=== PATIENT | male | born 1950 | race Caucasian/White ===

== ENCOUNTER → 2018-12-24 16:10 | Outpatient (CLI) | payer MEDICARE, SELFPAY ==
[2018-12-24 17:05] LABS: Anion Gap 8 (5-15); BUN 29 mg/dL (7-18); Calcium,Total 8.6 mg/dL (8.5-10.1); Chloride 110 mmol/L (98-107); Creatinine, Serum 1.16 mg/dL (0.70-1.30); EST Glomerular Filtration Rate 67 mL/min (>60); Est Glom Filt Rate - Afr Amer 81 mL/min (>60); Glucose 124 mg/dL (74-106); Potassium 4.1 mmol/L (3.5-5.1); Sodium Level 143 mmol/L (136-145)
== END ==
PROVIDERS: PCP Family Medicine; Referring Provider Family Medicine; Visit Provider Family Medicine
DX: L30.9 Dermatitis, unspecified (principal)
CPT/HCPCS: 80048

== ENCOUNTER → 2018-12-26 10:03 | Outpatient (CLI) | payer MEDICARE, SELFPAY ==
[2018-12-26 10:40] LABS: Hemoglobin A1c 5.9 % (4.2-6.3)
== END ==
PROVIDERS: PCP Family Medicine; Referring Provider Family Medicine; Visit Provider Family Medicine
DX: R73.9 Hyperglycemia, unspecified (principal)
CPT/HCPCS: 83036

== ENCOUNTER → 2024-11-24 | Outpatient (CLI) | payer MEDICARE, SELFPAY ==
--- NOTE | 2024-11-24 08:21 | CT_ITS ---
PROCEDURE: EXTREMITY LOWER WITHOUT CONTRA 11/24/2024 REASON FOR EXAM: TEMPLATING FOR LEFT [employer] protocol. TECHNIQUE: Axial CT images of the left lower extremity obtained without intravenous contrast. Coronal and Sagittal reconstruction series were provided. One or more dose reduction techniques were used (e.g., Automated exposure control, adjustment of the mA and/or kV according to patient size, use of iterative reconstruction technique RADIATION DOSE SUMMARY: CTDlvol: 18.5 mGy DLP: 1225.79 mGycm COMPARISON: None FINDINGS: Bones: No bony abnormality is seen. Joints: Imaging of the left hip joint was obtained. There is good alignment. Mild degree of joint space narrowing. Mild degree of degenerative changes of the left sacroiliac joint. Imaging of the left knee was obtained. There is a marked degree of joint space narrowing involving the medial compartment of the knee joint with evidence of subchondral cystic changes in the medial femoral condyle and medial tibial plateau. Mild degree of degenerative changes of the patellofemoral joint. Imaging of the ankle joint was obtained. There is evidence of calcaneal spurs. No other abnormality is seen. Soft Tissues: Small knee joint effusion. CT/Extremity Lower without Contra IMPRESSION: Osteoarthritis of the left knee joint as described. Small knee joint effusion. Calcaneal spurs. Reading Location: [id number]
== END | disposition home or self-care (01) ==
LOC: CT 08:01
PROVIDERS: PCP Family Medicine; Referring Provider Orthopaedic Surgery; Visit Provider Orthopaedic Surgery
DX: M17.12 Unilateral primary osteoarthritis, left knee (principal)
CPT/HCPCS: 73700

== ENCOUNTER 2024-12-02 05:08 | Day surgery (SDC) | payer MEDICARE, SELFPAY ==
--- NOTE | 2024-11-24 07:59 | EKG12_ITS ---
Test Reason : PRE OP Blood Pressure : */* mmHG Vent. Rate : 88 BPM Atrial Rate : 88 BPM P-R Int : 192 ms QRS Dur : 82 ms QT Int : 350 ms P-R-T Axes : 48 -6 55 degrees QTcB Int : 423 ms Normal sinus rhythm Moderate voltage criteria for LVH, may be normal variant ST abnormality, possible digitalis effect Abnormal ECG Confirmed by ANDREY MARTIN, BENJAMÍN ([id number]), editor sound OLI RUBALCAVA ([id number]) on 11/24/2024 11:42:14 AM Referred By: Kiran Quinones Confirmed By: BENJAMÍN BALDERAS MD
[2024-11-24 08:54] LABS: Absolute Lymphocyte Count 1.53 X10^3/uL (0.83-4.51); Absolute Neutrophil Count 3.6 X10^3/uL (2.0-7.7); Basophil# 0.06 X10^3/uL; Eosinophil# 0.15 X10^3/uL; Eosinophils% 2.5 % (0-5); Hematocrit 44.4 % (40-54); Hemoglobin 15.1 g/dL (13.0-16.5); Lymphocyte # 1.53 X10^3/ul (0.83-4.51); Lymphocyte % 25.7 % (19-41); Mean Corpuscular Hgb 32.4 pg (27.0-32.0); Mean Corpuscular Volume 95.3 fL (80-94); Mean Platelet Vol. 10.4 fl (6.2-12.0); Monocyte# 0.64 X10^3/uL; Monocyte% 10.7 % (0-10); NRBC Flagged by Analyzer 0 % (0-5); Neutrophil # 3.55 X10^3/uL (2.7-7.7); Neutrophil % 59.6 % (47-70); Platelet Count 216 K/mm3 (150-450); RBC Distribution Width CV 12.3 % (11.6-14.6); RBC Distribution Width SD 43.8 fl (35.1-43.9); Red Blood Count 4.66 M/mm3 (4.6-6.2)
[2024-11-24 09:14] LABS: Prothrombin Time (Protime)PT. 13.4 SECONDS (11.7-14.9)
[2024-11-24 09:46] LABS: Anion Gap 15 (5-15); BUN 31 mg/dL (4-19); BUN/Creat Ratio 25.3 RATIO (10-20); Calcium,Total 9.4 mg/dL (7.6-11.0); Carbon Dioxide 19.1 mmol/L (21.0-32.0); Chloride 107 mmol/L (98-108); Creatinine, Serum 1.21 mg/dL (0.70-1.20); EST Glomerular Filtration Rate 63 (>60); Glucose 91 mg/dL (70-99); Potassium 4.1 mmol/L (3.3-5.1); Sodium Level 141 mmol/L (133-145)
[2024-11-24 09:57] LABS: Hemoglobin A1c 5.8 % (<=5.6)
[2024-11-24 10:22] LABS: Magnesium 2.2 mg/dL (1.5-2.2)
[2024-11-25 05:07] LABS: Fructosamine 232 umol/L (0-285)
--- NOTE | 2024-11-25 09:50 | PAT.ANESEVAL ---
Pre-Assessment Diagnosis/Proposed Procedure Planned Operative Procedure(s): (L) Left Total Knee Replacement Robotic Arm Assisted, ERAS Anesthesia History Anesthesia History - solderer torch: Anesthesia History - solderer torch Hx Hospitalization No 11/18/24 14:24 Any Problems With Anesthesia No 11/18/24 14:24 Cholinesterase deficiency No 11/18/24 14:24 You/Your Family Experience No 11/18/24 14:24 fever (hyperthermia) with Relationship Recent Exposure to Contagious Disease Does patient have nerve No 11/18/24 14:24 stimulator Patient instructed to have device shut off --Does patient have Pacemaker or ICD? When Was Last Pacemaker Check QUESTION #4 FULL TEXT: You/Your Family Experience fever (hyperthermia) with Anesthesia Last Oral Intake Last Oral intake: Last Oral Intake NPO since Meds taken in AM with sips of water? Meds patient instructed to take am of surgery PONV PONV - solderer torch: PONV - solderer torch Female No 11/18/24 14:24 HX of Motion Sickness No 11/18/24 14:24 HX of N/V After Surgery Yes 11/18/24 14:24 Non-Smoker No 11/18/24 14:24 Duration of Surgery greater Yes 11/18/24 14:24 than 60 minutes Number of Risk Factors 2 11/18/24 14:24 PONV Score Moderate Risk 11/18/24 14:24 Height & Weight Height & Weight: Anesthesia: Height & Weight Height 5 ft 8 in 09/22/24 14:58 Respiratory Assessment Respiratory Assessment - solderer torch: Respiratory Tract Infection Hx - solderer torch Hx Respiratory Tract Infection No 11/18/24 14:24 STOP Sleep Apnea STOP Sleep Apnea - solderer torch: STOP Sleep Apnea - solderer torch Hx Hypertension No 11/18/24 14:24 Hx Sleep Apnea No 11/18/24 14:24 CPAP BIPAP Do you snore loudly (louder No 11/18/24 14:24 than talking or can be heard Do you often feel tired/ No 11/18/24 14:24 fatigued/ sleepy during daytime? Has anyone observed you stop No 11/18/24 14:24 breathing during sleep? STOP Results Negative 11/18/24 14:24 QUESTION #5 FULL TEXT : Do you snore loudly (louder than talking or can be heard through closed doors)? 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 Specify any problems Hx of Preganancy in last 3 N/A 11/18/24 14:24 Months Nurse Filling Out Transfusion VCHRISTIN 11/18/24 14:24 & Questions: Date: 11/18/24 11/18/24 14:24 Time: 14:11/18/24 14:24 Patient unable to answer at this time (ie. confused, unrespo /Reproduction History /Reproductive History - solderer torch: /Reproductive Hx- solderer torch Hx Now Gestational Age (in weeks): EDC: Hx Hx Para Hx Section SAB PFSH Medical History Wears glasses History of steroid therapy Arthritis Easy bruising Excessive bleeding Former smoker Exposure to asbestos Home Medications ?Medication ?Instructions ?Recorded ?Last Taken ?Type magnesium 250 mg tablet 250 mg PO DAILY 11/18/24 Unknown History Allergy/AdvReac Type Severity Reaction Status Date / Time No Known Allergies Allergy Verified 11/19/24 14:24 Surgical History Hx of tonsillectomy Social History household members: spouse and family Smoking Status: Former smoker quit date: 08/27/79 alcohol intake: never Audit: Pertinent Findings Pertinent Findings EKG Perinent findings: November 24, 2024. Normal sinus rhythm. Moderate LVH. ST abnormality, possible digitalis effect. Recommendation Anesthesia Recommendation Anesthesia recommendation: OPTIMIZED for anesthesia
[2024-12-02] VITALS (13 sets, daily range): BP systolic 121–148; BP diastolic 49–71; PULSE 81–115; RESP 14–26; TEMP 36.1–36.7; O2SAT 94–99; BMI 26.6
[2024-12-02] MEDS: Acetaminophen 500 MG Tablet 1000 MG PO (06:03)
[2024-12-02] MEDS: Celecoxib 200 MG Capsule 400 MG PO (06:03)
[2024-12-02] MEDS: Gabapentin 600 MG Tablet PO (06:03)
[2024-12-02] MEDS: Scopolamine 1mg/72hr Patch 1 PATCH TD (06:04)
[2024-12-02] MEDS: 0.9% Normal Saline (1000mL) 1,000 ML 15 ML IV (06:12)
[2024-12-02] MEDS: Magnesium 1 GM over 15 mins IV (06:13)
[2024-12-02 06:26] LABS: Bedside Glucose 80 mg/dL (74-106)
--- NOTE | 2024-12-02 06:45 | PCM.PRE.AN2 ---
ASA Classification* ASA Classification ASA Classification: 2 Assessment & Plan Anesthesia* Anesthesia Assessment Anesthesia Assessment: Discussed sedation and/or anesthesia options, risks, benefits, and alternatives with patient/parents/legal guardian/POA. Questions invited. The patient/parents/legal guardian/POA seems to understand and agrees to proceed with anesthesia plan. Reviewed the physical assessment, medical history, allergy history and patient home medications list prior to surgery/procedure/anesthetic and documented any changes. Performed airway and anesthesia risk assessments. Anesthesia Type Anesthesia Type: Spinal and Block (Adductor canal block discussed. He wishes to hold off for now.) History Source History Obtained from:: Patient and Chart Anesthesia Focused Assessment* Temperature: 98.1 F Pulse Rate: 81 Blood Pressure: 148/70 Respiratory Rate: 16 Pulse Ox: 99 Oxygen Delivery Method: Room Air Airway Assessment Mouth opens: >3 cm Mallampati Score: IV Teeth Condition: Dentures (Patient has full upper and lower dentures. They are out.) Neck Range of motion (ROM): Limited ROM (Slight decrease in exertion) Focused Labs Anesthesia Preop lab: CBC WBC 6.0 K/mm3 (4.4-11.0) 11/24/24 08:34 11/24/24 RBC 4.66 M/mm3 (4.6-6.2) 11/24/24 08:34 11/24/24 Hgb 15.1 g/dL (13.0-16.5) 11/24/24 08:34 11/24/24 Hct 44.4 % (40-54) 11/24/24 08:34 11/24/24 Plt Count 216 K/mm3 (150-450) 11/24/24 08:34 11/24/24 CHEMISTRY Potassium 4.1 mmol/L (3.3-5.1) 11/24/24 08:34 11/24/24 Sodium 141 mmol/L (133-145) 11/24/24 08:34 11/24/24 Magnesium 2.2 mg/dL (1.5-2.2) 11/24/24 08:34 11/24/24 BUN 31 mg/dL (4-19) H 11/24/24 08:34 11/24/24 Creatinine 1.21 mg/dL (0.70-1.20) H 11/24/24 08:34 11/24/24 Glucose 91 mg/dL (70-99) 11/24/24 08:34 11/24/24 POC Glucose 80 mg/dL (74-106) 12/02/24 06:00 12/02/24 COAG PT 13.4 SECONDS (11.7-14.9) 11/24/24 08:34 11/24/24 Pre-Assessment Diagnosis/Proposed Procedure Planned Operative Procedure(s): (L) Left Total Knee Replacement Robotic Arm Assisted, ERAS Anesthesia History Anesthesia History - vp celebrity services: Anesthesia History - vp celebrity services Hx Hospitalization No 11/18/24 14:24 Any Problems With Anesthesia No 11/18/24 14:24 Cholinesterase deficiency No 11/18/24 14:24 You/Your Family Experience No 11/18/24 14:24 fever (hyperthermia) with Relationship Recent Exposure to Contagious No 12/02/24 05:53 Disease Does patient have nerve No 11/18/24 14:24 stimulator Patient instructed to have device shut off --Does patient have Pacemaker No 12/02/24 05:56 or ICD? When Was Last Pacemaker Check QUESTION #4 FULL TEXT: You/Your Family Experience fever (hyperthermia) with Anesthesia Last Oral Intake Last Oral intake: Last Oral Intake NPO since 03:30 12/02/24 05:56 Meds taken in AM with sips of No 12/02/24 05:56 water? Meds patient instructed to take am of surgery Any additional information?: Yes NPO since: 03:30 (Patient took preop Ensure at 3:30 AM) Meds taken in AM with sips of water?: No PONV PONV - vp celebrity services: PONV - vp celebrity services Female No 11/18/24 14:24 HX of Motion Sickness No 11/18/24 14:24 HX of N/V After Surgery Yes 11/18/24 14:24 Non-Smoker No 11/18/24 14:24 Duration of Surgery greater Yes 11/18/24 14:24 than 60 minutes Number of Risk Factors 2 11/18/24 14:24 PONV Score Moderate Risk 11/18/24 14:24 Height & Weight Height & Weight: Anesthesia: Height & Weight Height 5 ft 8 in 12/02/24 05:56 Weight: 79.379 kg 04/08/25 05:56 Body Mass Index (BMI) 26.6 12/02/24 05:56 Respiratory Assessment Respiratory Assessment - v[employer] celebrity services: Respiratory Tract Infection Hx - vp celebrity services Hx Respiratory Tract Infection No 11/18/24 14:24 STOP Sleep Apnea STOP Sleep Apnea - v[employer] celebrity services: STOP Sleep Apnea - vp celebrity services Hx Hypertension No 11/18/24 14:24 Hx Sleep Apnea No 11/18/24 14:24 CPAP BIPAP Do you snore loudly (louder No 11/18/24 14:24 than talking or can be heard Do you often feel tired/ No 11/18/24 14:24 fatigued/ sleepy during daytime? Has anyone observed you stop No 11/18/24 14:24 breathing during sleep? STOP Results Negative 11/18/24 14:24 QUESTION #5 FULL TEXT : Do you snore loudly (louder than talking or can be heard through closed doors)? 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 Specify any problems Hx of Preganancy in last 3 N/A 11/18/24 14:24 Months Nurse Filling Out Transfusion VCHRISTIN 11/18/24 14:24 & Questions: Date: 11/18/24 11/18/24 14:24 Time: 14:25 11/18/24 14:24 Patient unable to answer at this time (ie. confused, unrespo /Reproduction History /Reproductive History - vp celebrity services: /Reproductive Hx- vp celebrity services Hx Now Gestational Age (in weeks): EDC: Hx Hx Para Hx Section SAB Active Medications Active Medications: Current Medications Generic Name Dose Route Start Last Admin Trade Name Jaret PRN Reason Stop Dose Admin Acetaminophen 1,000 mg 12/02/24 07:30 12/02/24 06:03 Acetaminophen 500 Mg Tablet PO 12/02/24 07:31 1,000 mg X1 ONE Administration Celecoxib 400 mg 12/02/24 07:30 12/02/24 06:03 Celecoxib 200 Mg Capsule PO 12/02/24 07:31 400 mg X1 ONE Administration Dexamethasone Sodium Phosphate 10 mg 12/02/24 07:30 Dexamethasone 10 Mg/Ml Vial IV 12/02/24 07:31 X1 ONE Gabapentin 600 mg 12/02/24 07:30 12/02/24 06:03 Gabapentin 600 Mg Tablet PO 12/02/24 07:31 600 mg X1 ONE Administration Cefazolin Sodium 2 gm/ N/A 20 mls @ 400 mls/hr 12/02/24 07:30 IV 12/02/24 07:32 PREOP ONE Tranexamic Acid 1,000 mg/ 110 mls @ 660 mls/hr 12/02/24 07:30 Sodium Chloride IV 12/02/24 07:39 X1 ONE Tranexamic Acid 1,000 mg/ 110 mls @ 660 mls/hr 12/02/24 07:30 Sodium Chloride IV 12/02/24 07:39 X1 ONE Lactated Ringer's 1,000 mls @ 125 mls/hr 12/02/24 07:30 IV 12/02/24 15:29 .Q8H SHAYLA Magnesium Sulfate 1 gm/ 102 mls @ 408 mls/hr 12/02/24 07:30 12/02/24 06:13 Dextrose IV 12/02/24 07:44 408 mls/hr X1 ONE Administration Sodium Chloride 1,000 mls @ 15 mls/hr 12/02/24 05:40 12/02/24 06:12 IV 15 mls/hr .Q48H SHAYLA Administration Insulin Human Lispro 1 - 6 unit 12/02/24 07:30 Insulin Lispro 100 Unit/Ml Insuln.Pen SC 12/02/24 18:00 Q4H PRN PRN BG>/= 180, SEE PROTOCOL Protocol Scopolamine HBr 1 patch 12/02/24 07:30 12/02/24 06:04 Scopolamine 1mg/72hr Patch TD 12/02/24 07:31 1 patch X1 ONE Administration Sodium Chloride 10 - 40 ml 12/02/24 07:30 0.9% Nacl Peripheral Flush Adult IV UD PRN SALINE FLUSH PFSH Medical History Wears glasses History of steroid therapy Arthritis Easy bruising Excessive bleeding Former smoker Exposure to asbestos Home Medications ?Medication ?Instructions ?Recorded ?Last Taken ?Type magnesium 250 mg tablet 250 mg PO DAILY 11/18/24 12/01/24 History Allergy/AdvReac Type Severity Reaction Status Date / Time No Known Allergies Allergy Verified 12/02/24 05:52 Surgical History Hx of tonsillectomy Social History household members: spouse and family Smoking Status: Former smoker quit date: 08/27/79 alcohol intake: never Review of Systems (Anesthesia) ROS Narrative System reviewed and no additional complaints, except as documented.
--- NOTE | 2024-12-02 06:59 | PCM.HP.BLA ---
History and Physical Date of Admission: 12/02/24 [facility] [address] [place] [address] OFFICE VISIT Date of Service: 09/22/24 MR#: [id number] Acct: [id number] Name: CECIL LEONARD Rep #: [id number] : 1950 Provider: Dr. Kiran Quinones DO Age/Sex: 74/M Location: [facility] Status: Signed Intake Vital Signs 09/22/2513:58 Height 5 ft 8 in Weight: 182 lb 2 oz BMI 27.6 Intake Visit Reasons: LEFT KNEE Accompanied by: Self Is patient in pain?: Yes Pain scale (1-10): 5 Allergies No Known Allergies Allergy (Unverified 09/22/24 15:05) Medications ?Medication ?Instructions ?Recorded ?Confirmed ?Type NK 09/22/24 09/22/24 History Have you fallen in the past year?: No PFSH Social History (Updated 09/22/24 @ 15:06 by Alexandra Ramos) household members: spouse and family Smoking Status: Former smoker quit date: 08/27/79 alcohol intake: never HPI LEFT KNEE Details: This documentation accurately reflects the service provided and the decisions made by me, Dr. Kiran Quinones, 09/22/24 0824. Part of today?s visit was documented by [ ], acting as scribe. CECIL LEONARD is a 74 year old M here today for left knee pain. Patient notes that he has had left knee pain for many years. He denies any known injury. Patient denies any prior surgeries. He complains of pain over his anterior knee into his foot, he also complains of posterior knee pain. He has numbness and tingling at times into his foot. He notes that he had a pop in his knee while putting on his socks. He was unable to ambulate for 3 days but after rest and heat, his pain has improved. Patient notes that he has grinding in his knee. Patient denies any knee instabilty. He has increased pain with all activities and turning. Patient denies any physical therapy. He had a cortisone injection which was helpful for a few days, last March by Dr Vicki Zuniga. He has tried knee bracing which is not helpful and might have increased his pain. Patient takes aleve for pain. Ortho Exam General General: Yes no acute distress Neurologic: Yes alert and Yes oriented x3 Psychologic: Yes reasonable and appropriate Right Knee Patella Translation: 1 Left Knee Skin/Wound: Yes CDI, No ecchymosis, No erythema and No swelling 1+: Effusion Knee ROM: Yes ROM-Extension -20 to 0 and Yes ROM-Flexion 0-140 (100) Examination: Yes med jt line tenderness, No Lat jt line tenderness and No Crepitus Stability: NML: Anterior Drawer, NML: Posterior Drawer, NML: Valgus 0, NML: Varus 30 and NML: Dial 90 and 1+: Valgus 30 (3mm medial gapping due to joint space narrowing) and 1+: Varus 0 Patella Translation: 1 Patella Grind: Yes KNEE: slight varus deformity. good ankle ROM. Head: Normocephalic Atraumatic Chest: symmetrical rise, non-labored breathing, no audible wheeze Abdomen: no guarding, non-rigid Supplemental Info 09/22/2024 left knee x-ray: Severe medial compartment narrowing subchondral sclerosis, mild spurring in the lateral compartment, mild to moderate patellofemoral Coding Level of Care Code Off vis,new,level 3 Diagnoses Primary osteoarthritis of left knee M17.12 Osteoarthritis type: primary Chronic instability of knee, left knee M23.52 Assessment and Plan Assessment and Plan (1) Osteoarthritis of left knee: Status: Acute Qualifiers: Osteoarthritis type: primary Qualified Code(s): M17.12 - Unilateral primary osteoarthritis, left knee (2) Chronic instability of knee, left knee: Status: Acute Orders: Orders Knee 4 or More Views Today M25.562 - Pain in left knee Plan Spoke with the patient about the anatomy of the knee and etiology of his pain. He has severe osteoarthritis of his medial compartment which can cause pain of into his [place]. Spoke with him about his options- physical therapy, cortisone injection, viscosupplementation injection, medial presser hand brace, oral anti-inflammatory, total knee arthroplasty. Explained the surgery procedure, risks and benefits. Patient will need a CT scan for makoplasty. Risks include- blood clots which he will take a blood thinner post op and use compression stockings, infection, stiffness . Recommend the patient walk post op as well. He might have a mechanical feel post op. He will need an antibiotic prior to any dental procedure for a year post op. Due to his stiffness prior to surgery, he has an increased risk of post op stiffness and he will need to do physical therapy. It may take up to 2 years to fully improve after surgery. Explained there is a patch of numbness over the lateral knee. Patient may do his surgery outpatient although he has steps in his home. Gave the patient a home exercise program for strengthening and range of motion. He would not be able to have a steroid injection for 3 months. He should contact our office if he would like to move forward with surgery. He wanted to check with his insurance company for the coverage for an injection. Follow up on an as needed basis or sooner if pain, swelling, numbness or associated symptoms, or concerns develop. All questions answered. Patient in agreement of plan. Clinical Quality Measures Falls Risk Screening/Assistive Devices Have you fallen in the past year?: No 09/22/24 1547 <Electronically signed by Kiran Quinones DO> Date Kiran Velascoignronny Signature: Date (if applicable) CC: ~ I have examined the patient and the H&P has been reviewed. There are no clinical changes since date of exam.
[2024-12-02] MEDS: Cefazolin 2 GM in Syringe 10 ML IV (07:24)
[2024-12-02] MEDS: TXA 1000mg in NS100 100ml (IVPB at Incision) 660 MG IV (07:30)
[2024-12-02] MEDS: dexAMETHasone 10 MG/ML Vial IV (07:30)
--- NOTE | 2024-12-02 07:30 | KNEE_PTH ---
PATIENT: CECIL LEONARD LOC: [facility] [place] U#:[id number] AGE/SX: 74/M ROOM: RE12/02/[address]: Dr. Kiran Quinones DO : 1950 BED: DIS: 12/02/2024 SPEC #: [id number] RECD: 12/02/24 13:21 STATUS: PANTERA RENegro #: [id number] MARKUS: 12/02/24 07:[address]: Kiran Quinones DEPT: SURGICAL PATHOLOGY RECD BY: Jerardo Parker ENTERED: 12/02/24 13:21 SP TYPE: TOTAL KNEE OTHR DR: Dr. Vicki Zuniga DO Tissues: A - Knee, NOS Procedures: Decalcification bone/plaque Surgery Specimen Level III HEADER OPERATION: ERAS, left total knee replacement robotic arm assist PRE-OP DIAGNOSIS: Osteoarthritis of left knee TISSUE SUBMITTED: A- Left knee debrided bone and tissue MICROSCOPIC DIAGNOSIS A. Left knee, osteoarthritis, total arthroplasty: * Articular bone, synovium, and fibrocartilage with reactive and degenerative changes. MICROSCOPIC DESCRIPTION Slides are reviewed. GROSS DESCRIPTION A. Received in formalin in a container labeled with the patient's name, date of , and debrided bone and tissue left knee are multiple , firm, and irregular fragments of bone and soft tissue measuring 10 x 7 x 4 cm in aggregate. The specimen consists of, but is not limited to, medial/lateral condyle and tibial plateau. The resection margins are smooth and firm, and the opposing cortical surfaces are pitted and granular with smooth eburnation. Sectioning reveals firm cut surfaces. Head Of Sales And Marketing sections:A1. Soft tissueA2. Bone following decalcification [facility] 12-02-2024 CPT:19070,70362
[2024-12-02] MEDS: TXA 1000mg in NS100 100ml (IVPB at Closure) 660 MG IV (08:02)
[2024-12-02] MEDS: dexAMETHasone 4 MG/ML Vial (08:53)
[2024-12-02] MEDS: Epinephrine (1 mg/ml) 1 MG/ML VIAL (08:53)
[2024-12-02] MEDS: Bupivacaine 0.5% PF 10 ML VIAL (08:53)
[2024-12-02] MEDS: 0.9% Normal Saline (Pres. free 10 ML Vial (08:53)
--- NOTE | 2024-12-02 09:44 | DCINST_ITS ---
Discharge Instructions Diet Discharge Diet: No restrictions Activity Weight Bearing Status: Full weight bearing Dressing / Incision Call your doctor if you observe: Shortness of breath and Chest pain Additional Dressing/Incision Instructions:: Ice and elevate lower extremities 2 weeks while not ambulating. Ambulation is encouraged. Weight bearing as tolerated. Use assistive devise for stability. Encourage FULL knee extension and flexion 1 time EVERY time you get up and down and MULTIPLE times per day. No showering until 72 hours after surgery. May begin showering postop day #3. Remove the dressing prior to shower and gently wash with warm water and antibacterial soap then pat dry and place abdominal pad (or plain gauze) and DOMO hose over top. If you decide not to begin showering 72 hrs post operatively and wish to sponge bath only, then you may leave dressing undisturbed for up to 1 week, but must remove prior to first shower. Do not submerge for 3 weeks. If not showering daily after the initial dressing is removed you must clean incision and change dressing daily after the dressing comes off, must come off by 7 days postop. Do not allow animals near the incision area. Keep clean. Follow anti-coagulation recommendations as prescribed. Do not take any NSAIDs while on blood thinner. Do not take any additional narcotic pain medication other than what was prescribed on your surgery day without discussing with physician. Narcotic medication can be addictive. Do not drink alcohol while taking narcotics. Supplement narcotic prescription with acetaminophen 1000 mg 4 times a day. Start physical therapy. If you are not currently scheduled for physical therapy or you are unsure of appointment time please call office [facility] to arrange. Call Dr. Quinones's office ) with any concerns. Follow Up Care Please Follow Up With: Kiran Quinones DO When: 2 weeks Test Results: Test results from this visit will be discussed in further detail at your follow- up appointment, if applicable. Discharge Plan Admission Primary Reason for Your Visit: Left total knee arthroplasty Attending Provider: Kiran Quinones Primary Care Provider: Vicki Zuniga Instructions Print Language: Kyrgyz Discharge Orders/Prescriptions Prescriptions: New acetaminophen 500 mg tablet 1,000 mg PO Q6H Qty: 100 0RF cephalexin 500 mg capsule 1,000 mg PO Q8H Qty: 4 0RF Rx Instructions: Take 2 tabs before you go to bed and 2 tabs after 5 AM morning after surgery when you wake up oxycodone 5 mg tablet 5 - 10 mg PO Q6H PRN (Reason: pain) 7 Days Qty: 60 0RF Eliquis 2.5 mg tablet 2.5 mg PO BID Qty: 28 0RF Rx Instructions: Begin morning after surgery. Continued magnesium 250 mg tablet 250 mg PO DAILY Referrals / Follow Up: Tuan Lawson MD [Non-Staff] - Disposition Disposition (needs filled in before D/C Order can be placed): Home, Self Care
--- NOTE | 2024-12-02 09:48 | OP.PCM_ITS ---
Operative Report (Standard) Operative Information Date of Procedure: 12/02/24 Pre-Operative Diagnosis: Left knee DJD Post-Operative Diagnosis: Same Surgery/Procedure Performed: Left total knee arthroplasty federal district clerk: Yes Castings Drafter: Rajeev Crandall Tasks completed by cook's assistant: Opening & closing Type of Anesthesia: Spinal RN Documented Start/Stop Times: Operation Date: 12/02/24 07:30 Case Time Into Pre-Op 12/02/24 05:34 Anesthesia Start 12/02/24 07:24 Into Room 12/02/24 07:24 Procedure Start 12/02/24 07:49 Procedure End 12/02/24 09:38 Anesthesia End 12/02/24 09:45 Out of Room 12/02/24 09:45 Procedure Start Time: 07:49 Procedure Stop Time: 09:38 Select all DRAINS/GRAFTS/IMPLANTS that apply: Prosthetic device Prosthetic device details: [employer] triathlon Estimated Blood Loss: 125 Specimen collected: Yes Description of specimen(s) removed: Bone Description of surgery: Preoperative diagnosis: Left knee DJD Postoperative diagnosis: Same Procedure: Left total knee arthroplasty CT guided Robotic Assisted Implant: [employer] triathlon press fit, femoral component size5, tibial baseplate size 5, asymmetric patella size 35, polyethylene X3 size 10 CS Anesthesia: Spinal with adductor canal block Tourniquet time: 12 minutes at 300 mmHg Complications: None Condition: Stable to PACU Estimated blood loss: 125 cc Senior Qa Engineer Rajeev Crandall. My physician medical assistant internal medicine was a vital part of this case. He was important in appropriate retraction during the case, and protection of soft tissues during procedure. His intimate knowledge of the case and my steps aided in safe and expedient completion of the procedure as well as appropriate position of the extremity during the case. He was also vital in assisting with closure under my direct supervision. Indication for procedure: This is a 74-year-old male with long standing degenerative joint disease of the knee who has failed conservative treatment and wished to proceed with elective total knee arthroplasty. Risk benefits and alternatives were reviewed including; risk of bleeding, infection, nerve artery and tissue damage, continued pain, postoperative stiffness, venous thromboembolism, need for postoperative rehabilitation, mechanical feel to the knee, and expected postoperative course. The pre- operative CT and templating was performed with component sizing. Procedure: The patient was met in the preoperative holding area. The operative extremity was identified by both patient and physician and was marked. Patient was met by anesthesia. An adductor canal block was placed by anesthesia postoperatively the patient was brought back to the operating room on a wheeled cart and transferred to the operating table in the supine position. Anesthesia was started. A well-padded tourniquet was placed on the operative extremity. The patient was prepped and draped in the usual sterile fashion. A timeout was called to ensure the proper patient procedure and extremity were being contemplated. An esmarch was used to exsanguinate the extremity. The tourniquet was inflated. A 10 blade scalpel was used to make a midline incision down through the skin and subcutaneous tissue. Skin retractors placed. Bovie and Aquamantis were used to perform meticulous hemostasis. full-thickness flaps were elevated medial and lateral along the joint capsule. A deep blade scalpel was used to perform a medial parapatellar arthrotomy. The knee was brought to full extension. A bovie was used to release the soft tissues off the most proximal aspect of the medial tibial plateau, a three-quarter inch curved osteotome was also used in this process. The infrapatellar fat pad was excised. The suprapatellar fat pad was excised partially anteriorolateraly and portion the anterioromedial pad was elevated from the femur. At this point our intra- articular femoral array was placed at a 45 degree angle proximal and posterior to the medial epicondyle. femoral checkpoint was placed at this time. Our tibial array was placed partially intra incisional 1 stab incision was made for the inferior pin with a 15 blade scaple, and pins were placed and attached to the tibial array , tibial checkpoint was placed in the proximal tibial metaphysis. Tourniquet was let down. At this point registration diego were taken throughout the knee . Once the knee was registered we then tensioned the medial and lateral ligaments in extension and 90 degrees of flexion. We then used these numbers to adjust our components within parameters to balance the kne e in both flexion and extension once this was done on our monitor we then proceeded with using the robotic arm to make our tibial plateau cut, anterior and posterior chamfer and distal femur cuts. we removed the cut fragments with the use of a bovie and Adina, we did use a lamina resort housekeeper to insure we visualized and removed all posterior osteophytes and at this time also used the Aquamantis on the posterior joint capsule. we then trialed and achieved the desired plan with a well-balanced knee. we used the green probe to barbara the corresponding tibial rotation based on our CT template. Lug holes were drilled in the femur the tibia preparation was completed with the appropriate sized base plate pinned based on previous rotation barbara. An appropriate sized fin punch was used on the tibia and 4 corner drill was used for the press fit component and the patella was prepared by first using a caliper to ensure sufficient bone stock and a patellar reamer to remove the desired amount of bone. lug holes drilled for an asymmetric poly. We then brought the knee through range of motion with excellent patellar tracking. We thoroughly irrigated the knee. Trial components were removed a posterior capsular injection was preformed with our standard cocktail. In addition the aqua Mantis was also used to aid in hemostasis. Betadine rinse was allowed to sit and washed out completely. Comp onents were press-fit into place. Aricept rinse was then used followed by several more liters of irrigation after it was allowed to sit. The joint capsule was closed with #1 Ethibond [id number] in the upper part of the arthrotomy and #1 Vicryl in the lower part of the arthrotomy. , Followed by 2-0 Vicryl in the subcutaneous tissues with noni in the skin. Arrays and checkpoints were removed prior to closure all counts were correct stab incisions were closed with a staple standard dressing in the form of Mepilex AG for the main incision and a small Mepilex over the pin holes. Thigh-high DOMO hose applied over top of dressing. Patient tolerated the procedure well and was directed to PACU in stable condition . There were no intraoperative complications. Surgical Findings: DJD knee Complications Complications: No
--- NOTE | 2024-12-02 09:52 | PCM.POST.ANE ---
Anesthesia: Postop Eval I Current Vital Signs Temperature: 97 F Pulse Rate: 107 Blood Pressure: 130/50 Respiratory Rate: 14 Pulse Ox: 95 Assessment Airway patent: Yes Spontaneous unlabored respirations: Yes nausea: No Vomiting: No Anesthesia Complication: No Fluid Hydration Crystalloid volume administer (ml): 1,700 Total IV fluid infused: 1,700 Progress Note Anesthesia document: Postop Eval 1 completed: Yes
--- NOTE | 2024-12-02 10:00 | RAD_ITS ---
PROCEDURE: Left knee radiographs, two views 12/02/2024 REASON FOR EXAM: Postoperative evaluation. Total knee arthroplasty TECHNIQUE: Two views of the left knee were obtained. COMPARISON: Left lower extremity CT 11/24/2024 FINDINGS: Two views of the left knee were obtained. Bones are osteopenic. Interval placement of left total knee arthroplasty. No acute fracture or dislocation of the left knee. Anterior skin noni are present. Small suprapatellar effusion. Air densities projecting over the anterior aspect of the left knee are presumably from recent surgical procedure. RAD/Knee 1 or 2 Views IMPRESSION: Osteopenia. Interval placement left total knee arthroplasty. No acute bony abnormality of the left knee. Anterior skin noni. Small suprapatellar effusion. Reading Location: [facility]
--- NOTE | 2024-12-02 12:36 | POSTOPAN2_ITS ---
Anesthesia Postop Eval I Sum Postop Eval Completion status Anesthesia document: Postop Eval 1 completed: Yes Anesthesia Postop Eval I Summary Anesthesia Postop Eval I Summary: Anesthesia Postop Eval I: Assessment Summary Airway patent Yes 12/02/24 09:52 DEFLASH AND WASH [email or web address] Spontaneous unlabored Yes 12/02/24 09:52 DEFLASH AND WASH [email or web address] respirations Mental status nausea No 12/02/24 09:52 DEFLASH AND WASH [email or web address] Vomiting No 12/02/24 09:52 DEFLASH AND WASH [email or web address] Anesthesia Postop Eval I: Fluid Summary Crystalloid volume administer 1,700 12/02/24 09:52 DEFLASH AND WASH [email or web address] (ml) Colloids volume administered ( ml) Blood Product volume administered (ml) Total IV fluid infused 1,700 12/02/24 09:52 DEFLASH AND WASH [email or web address] Anesthesia Postop Eval I: Summary Notes Anesthesia Complication No 12/02/24 09:52 DEFLASH AND WASH [email or web address] Anesthesia Complication Comment: Post-operative progress note Anesthesia: Postop Eval II Evaluation Mental status: Awake and Calm Pain Level: 2 nausea: No Vomiting: No Complications Anesthesia Complication: No
--- NOTE | 2024-12-02 12:36 | PCM.POSTANE2 ---
Anesthesia Postop Eval I Sum Postop Eval Completion status Anesthesia document: Postop Eval 1 completed: Yes Anesthesia Postop Eval I Summary Anesthesia Postop Eval I Summary: Anesthesia Postop Eval I: Assessment Summary Airway patent Yes 12/02/24 09:52 CLINICAL RESEARCH [email or web address] Spontaneous unlabored Yes 12/02/24 09:52 CLINICAL RESEARCH [email or web address] respirations Mental status nausea No 12/02/24 09:52 CLINICAL RESEARCH [email or web address] Vomiting No 12/02/24 09:52 CLINICAL RESEARCH [email or web address] Anesthesia Postop Eval I: Fluid Summary Crystalloid volume administer 1,700 12/02/24 09:52 CLINICAL RESEARCH [email or web address] (ml) Colloids volume administered ( ml) Blood Product volume administered (ml) Total IV fluid infused 1,700 12/02/24 09:52 CLINICAL RESEARCH [email or web address] Anesthesia Postop Eval I: Summary Notes Anesthesia Complication No 12/02/24 09:52 CLINICAL RESEARCH [email or web address] Anesthesia Complication Comment: Post-operative progress note Anesthesia: Postop Eval II Evaluation Mental status: Awake and Calm Pain Level: 2 nausea: No Vomiting: No Complications Anesthesia Complication: No
[2024-12-02] MEDS: Cefazolin 2 GM in Syringe IV (12:45)
== END 2024-12-02 14:48 | disposition home or self-care (01) ==
LOC: SDC 05:09 → AC 05:13
PROVIDERS: Anesthesiology; PCP Family Medicine; Referring Provider Orthopaedic Surgery; Visit Provider Orthopaedic Surgery
PROC: 0SRD0JZ Replacement of Left Knee Joint with Synthetic Substitute, Open Approach (ICD-10-PCS; CPT 27447; principal; 2024-12-02 07:00)
DX: M17.12 Unilateral primary osteoarthritis, left knee (principal); Z87.891 Personal history of nicotine dependence; M23.52 Chronic instability of knee, left knee; M25.562 Pain in left knee; Z01.818 Encounter for other preprocedural examination
CPT/HCPCS: 27447; 01402; 64450; 36415; 73560; 80048; 82962; 82985; 83036; 83735; 85025; 85610; 85730; 86850; 86900; 86901; 87081; 88305; 88311; 93005; 97162; C1776; J2405; J3475

== ENCOUNTER 2025-01-16 14:30 | Outpatient (RCR) | payer MEDICARE, SELFPAY ==
--- NOTE | 2024-12-08 08:53 | HP.PTEVAL_ITS ---
Patient's Visit Information Visit Information Visit Information: CECIL LEONARD is a 74 year old M referred to Physical Therapy by Dr. Kiran Quinones DO with a diagnosis of L TKA DOS: 12/02/24. Date of Evaluation: 12/05/24 Physical Therapist: Orestes Patricio DPT Visit Plan Frequency: 3x /Week Duration: 6 Weeks Plan: 1) L knee ROM progress to 0-0-120deg. 2) quad activation. 3) progressive functional strengthening 4) gait progression May use ice and vaso for edema control. Subjective Subjective: Pt. is here today for his initial evaluation with diagnosis of L TKA DOS: 12/02/24. Pt. arrives walking with FWW with good tolerance. Pt. reports 5/10 pain currently. Pt. denies NT, not calf pain, no chest pain. Pt. has been doing his exercises as prescribed. Pt. is retired. He is hopeful to increase his ROM and strength in order to get back to all recreational and gardening activities. Pain L knee: Pain Intensity (Out of 10): 5 Pain Intensity Range: 3 and 6 Objective Objective: POSTURE: Pt. has increased R wt. shift. Pt. lacks TKE of L knee. PALPATION: Negative for homans, Marked edema noted. NEURO: Normal throughout. ROM: L knee 0-8-94deg. MMT: L knee; ext 3#, flexion 18#; hip: flexion 0#, adb 8#. GAIT: pt. ambulates well with FWW. pt. has marked loss of TKE during stance phase, decreased knee flexion during swing phase. Balance/Special Test Scores TUG Test Time Seconds: 27.8 30 Second Chair Rise Test Seconds: 8 WOMAC Total Score: 46 WOMAC Percentatge: 52.0900 Goals Goal 1:: LTG: pt. to be I with HEP. Goal Time Frame: 4-6 Weeks Goal 2:: STG: Pt. to have increased L knee ROM to 0-0-120deg. Goal Time Frame: 2-4 Weeks Goal 3:: LTG: pt. to have full symmetrical strength of BLEs. Goal Time Frame: 6-8 Weeks Goal 4:: LTG: pt. to be able to ambulate without AD with normal gait pattern. Goal Time Frame: 4-6 Weeks Goal 5:: LTG: pt. complete stairs with reciprocal pattern with 1 HR without issues. Goal Time Frame: 6-8 Weeks Goal 6:: LTG: pt. to complete TUG with time less than 10sec without AD. Goal Time Frame: 6-8 Weeks Rehabilitation Potential Physical Therapy Diagnosis: Pt. has signs and symptoms consistent with L TKA DOS: 12/02/24. Pt. has marked hypomobility, weakness, difficulty walking and increased pain. Pt. would benefit from PT to address the above limitations. Rehabilitation Potential: Excellent Anticipated Interventions Patient/Client Instruction: Educate patient on: Condition, Plan of Care, Risk Factors and Benefits of Fitness Program For the Purpose of:: To facilitate caregiver knowledge, To improve self management, To prevent re-injury, To improve ability to perform tasks related to life management and To improve tolerance to ADL's Therapeutic Exercise to Include: Strength training, Power training, Endurance training, Balance training, Passive ROM, Active ROM and Scapular Strength/Stabilization For the Purpose of:: To decrease pain, To decrease swelling/inflammation, To increase ROM, To improve nutrient delivery to tissue, To increase oxygenation perfusion, To improve muscle performance and motor function, To improve gait and locomotor functions, To improve health of tissue, To decrease soft tissue restr iction, To increase flexibility/ROM and To improve balance Manual Therapy Techniques to Include: Mobilization, Passive ROM and Soft tissue mobilization For the Purpose of:: To decrease pain, To decrease swelling/inflammation, To increase ROM and To improve nutrient delivery to tissue Cryotherapy (ice pack, ice massage): Yes Vasopneumatic device: Yes For the Purpose of:: To decrease pain, To decrease swelling/inflammation, To increase ROM and To improve nutrient delivery to tissue Text: Thank you for the opportunity to evaluate your patient. For Medicare and Medicare HMO plans, please review the plan of care and approve it. It will need to be FAXED BACK to us at [phone] for Medicare purposes. For Medicare only, by signing this I certify the plan of care. Please let me know if there are questions or concerns regarding this plan of care. Physician Signature: Date:
== END 2025-01-16 19:00 | disposition home or self-care (01) ==
LOC: PT 14:30
PROVIDERS: PCP Family Medicine; Referring Provider Orthopaedic Surgery; Visit Provider Orthopaedic Surgery
DX: Z96.652 Presence of left artificial knee joint (principal); M17.12 Unilateral primary osteoarthritis, left knee
CPT/HCPCS: 97016; 97110; 97161; 97530